=== PATIENT | female | born 1970 | race Hispanic/Latino ===

== ENCOUNTER 2022-02-27 14:58 | Outpatient (CLI) | payer OTHER ==
[2022-02-27] MEDS ORDERED: Iopamidol 300 61% 100 ML VIAL FS ONE (15:05)
== END 2022-02-27 14:59 | disposition home or self-care (01) ==
LOC: CSHCT 14:58
PROVIDERS: ATTEND Student in an Organized Health Care Education/Training Program
DX: R10.11 Right upper quadrant pain (principal); C91.10 Chronic lymphocytic leukemia of B-cell type not having achieved remission; R11.0 Nausea; R74.8 Abnormal levels of other serum enzymes; K76.0 Fatty (change of) liver, not elsewhere classified
CPT/HCPCS: 71260; 74177; Q9967

== ENCOUNTER 2022-05-26 08:15 | Day surgery (SDC) | payer OTHER, MEDICAID ==
[2022-05-22 11:21] VITALS: BMI 36.6
[2022-05-26] MEDS ORDERED: PROPOFOL 20 ML ONE (10:13)
[2022-05-26] MEDS ORDERED: Fentanyl 100 MCG/2 ML VIAL ONE (10:13)
[2022-05-26] MEDS ORDERED: Lidocaine 1% PF 5 ML VIAL ONE (10:13)
== END 2022-05-26 11:12 | disposition home or self-care (01) ==
LOC: CSHSDC 08:15
PROVIDERS: ATTEND Internal Medicine Gastroenterology
PROC: 0DB98ZX Excision of Duodenum, Via Natural or Artificial Opening Endoscopic, Diagnostic (ICD-10-PCS; principal; 2022-05-26)
DX: K21.9 Gastro-esophageal reflux disease without esophagitis (principal); K63.5 Polyp of colon; G47.30 Sleep apnea, unspecified; F32.A Depression, unspecified; K76.0 Fatty (change of) liver, not elsewhere classified; E11.9 Type 2 diabetes mellitus without complications; C91.10 Chronic lymphocytic leukemia of B-cell type not having achieved remission; J30.9 Allergic rhinitis, unspecified; G25.2 Other specified forms of tremor; I25.10 Atherosclerotic heart disease of native coronary artery without angina pectoris; E78.5 Hyperlipidemia, unspecified; R11.0 Nausea; Z88.6 Allergy status to analgesic agent; Z88.0 Allergy status to penicillin; Z88.2 Allergy status to sulfonamides; Z87.891 Personal history of nicotine dependence
CPT/HCPCS: 36416; 88305; J2704; J3010

== ENCOUNTER 2024-05-18 23:19 | Emergency (ER) | payer OTHER ==
[2024-05-18 23:52] LABS: Hematocrit 42.3 % (34.9-44.5); Hemoglobin 14.2 g/dL (12.0-15.5); MDiff Complete? YES; Mean Corpuscular HGB CONC 33.6 g/dL (32.0-36.0); Mean Corpuscular Hemoglobin 29.6 pg (27.0-33.0); Mean Corpuscular Volume 88.3 fL (81.6-98.3); Mean Platelet Volume 9.9 fL (7.4-10.4); Platelet Count 382 10x3/uL (150-450); RBC Distribution Width 13.8 % (11.5-14.5); Red Blood Cell (RBC) Count 4.79 10x6/uL (3.90-5.03); White Blood Cell (WBC) Count 19.9 10x3/uL (3.5-10.5)
[2024-05-19 00:11] LABS: ALT (SGPT) 17 U/L (8-55); AST (SGOT) 16 U/L (5-34); Alkaline Phosphatase 97 U/L (40-110); Anion Gap 15 mmol/L (10-20); BUN (Urea Nitrogen) 9 mg/dL (9.8-20.1); Bilirubin, Total 0.2 mg/dL (0.2-1.2); Calc. Creatinine Clearance 0 mL/min (70-130); Calcium 8.8 mg/dL (7.8-10.44); Carbon Dioxide 24 mmol/L (22-29); Chloride 108 mmol/L (98-107); Estimated GFR 79; Globulin 2.6 g/dL (2.4-3.5); Glucose 92 mg/dL (70-105); Potassium 3.9 mmol/L (3.5-5.1); Protein, Total 6.6 g/dL (6.0-8.3); Sodium 143 mmol/L (136-145)
[2024-05-19 00:14] LABS: Troponin I Less than 0.010 ng/mL (< 0.028)
[2024-05-19] MEDS ORDERED: Metoclopramide HCl 10 MG (2 mL) VIAL ONE (00:31)
[2024-05-19] MEDS ORDERED: diphenhydrAMINE 50 MG/ML VIAL ONE (00:31)
[2024-05-19] MEDS ORDERED: Acetaminophen 500 MG TAB ONE (00:31)
[2024-05-19 00:57] LABS: Band 5 % (5-11); Eosinophils 1 % (0-10); Lymphocytes 50 % (21-51); Monocytes 2 % (0-10); Neutrophil 35 % (42-75); Platelet Adequacy Comment Appears Adequate; Reactive Lymphocytes 6 % (0-10)
[2024-05-19 00:59] LABS: RBC Morph Comment Within Normal Limits
[2024-05-19 02:34] LABS: Troponin I Less than 0.010 ng/mL (< 0.028)
== END 2024-05-19 02:59 | disposition home or self-care (01) ==
LOC: CSHERS 23:19
DX: H66.92 Otitis media, unspecified, left ear (principal); D72.829 Elevated white blood cell count, unspecified; R51.9 Headache, unspecified; E11.9 Type 2 diabetes mellitus without complications; I11.0 Hypertensive heart disease with heart failure; I50.9 Heart failure, unspecified; Z79.899 Other long term (current) drug therapy; Z55.6 Problems related to health literacy
CPT/HCPCS: 70450; 71045; 80053; 83880; 84484; 85025; 87428; 93005; 96374; 96375; 99284; J1200; J2765; 36415

== ENCOUNTER 2025-02-10 11:14 | Emergency (ER) | payer OTHER, MEDICAID ==
[2025-02-10] MEDS ORDERED: Ondansetron PF 4 MG/2 ML Vial ONE ×2 (11:54→14:13)
[2025-02-10] MEDS ORDERED: Ketorolac Tromethamine 30 MG (1 mL) VIAL ONE (11:54)
[2025-02-10 12:03] LABS: Glucose, Urine (Dipstick) Normal (Negative); Leukocyte Negative (Negative); Protein, Urine (Dipstick) 15 mg/dl (Neg-Trace); Specific Gravity, Urine 1.015 (1.005-1.030)
[2025-02-10 12:45] LABS: ALT (SGPT) 20 U/L (Less than 34); AST (SGOT) 22 U/L (11-34); Albumin 4.3 g/dL (3.1-4.5); Alkaline Phosphatase 90 U/L (40-110); Anion Gap 16 mmol/L (10-20); BUN (Urea Nitrogen) 13 mg/dL (9.8-20.1); Bilirubin, Total 0.5 mg/dL (0.3-1.2); Calc. Creatinine Clearance 0 mL/min (70-130); Calcium 9.1 mg/dL (7.8-10.44); Carbon Dioxide 22 mmol/L (22-29); Chloride 105 mmol/L (98-107); Globulin 3.1 g/dL (2.4-3.5); Glucose 87 mg/dL (70-105); Lipase 13 U/L (8-78); Potassium 4.4 mmol/L (3.5-5.1); Sodium 139 mmol/L (136-145)
[2025-02-10 12:52] LABS: Troponin I Less than 0.010 ng/mL (< 0.028)
[2025-02-10 12:58] LABS: Hematocrit 43.1 % (34.9-44.5); Hemoglobin 14.1 g/dL (12.0-15.5); Mean Corpuscular Hemoglobin 28.4 pg (27.0-33.0); Mean Corpuscular Volume 86.9 fL (81.6-98.3); Platelet Count 382 10x3/uL (150-450); Red Blood Cell (RBC) Count 4.96 10x6/uL (3.90-5.03); White Blood Cell (WBC) Count 18.32 10x3/uL (3.5-10.5)
[2025-02-10 13:06] LABS: Bacteria/HPF 1+ HPF (None Seen); CAUTI Indications for Culture Pelvic or flank pain; Mucous/LPF Rare LPF (<2+); RBC/HPF 0-3 HPF (0-3); WBC/HPF 0-3 HPF (0-3)
[2025-02-10 13:08] LABS: Urine Culture Reflex No No
[2025-02-10 14:58] LABS: RBC Morphology Within Normal Limits
[2025-02-10 14:59] LABS: MDiff Complete? YES; Platelet Adequacy Comment Appears Adequate
== END 2025-02-10 15:05 | disposition home or self-care (01) ==
LOC: CSHERS 11:14
DX: R30.0 Dysuria (principal); R50.9 Fever, unspecified; I11.0 Hypertensive heart disease with heart failure; I50.9 Heart failure, unspecified; E11.9 Type 2 diabetes mellitus without complications
CPT/HCPCS: 74176; 80053; 81001; 83605; 83690; 84484; 85025; 93005; 96374; 96375; 96376; 99285; J1885; J2270; J2405

== ENCOUNTER 2025-06-07 13:43 | Emergency (ER) | payer OTHER, MEDICAID ==
[2025-06-07 14:51] LABS: Glucose, Urine (Dipstick) Normal (Negative); Leukocyte 25 (Negative); Protein, Urine (Dipstick) 30 mg/dl (Neg-Trace); Specific Gravity, Urine 1.020 (1.005-1.030)
[2025-06-07 14:59] LABS: Cocaine Metabolite Screen Negative (Negative); THC/Cannabinoid Screen PRELIM POSITIVE (Negative); Tricyclic Screen Negative (Negative)
[2025-06-07 15:05] LABS: Hematocrit 41.3 % (34.9-44.5); Hemoglobin 13.8 g/dL (12.0-15.5); Mean Corpuscular Hemoglobin 29.6 pg (27.0-33.0); Mean Corpuscular Volume 88.6 fL (81.6-98.3); Platelet Count 410 10x3/uL (150-450); Red Blood Cell (RBC) Count 4.66 10x6/uL (3.90-5.03); White Blood Cell (WBC) Count 19.66 10x3/uL (3.5-10.5)
[2025-06-07 15:14] LABS: ALT (SGPT) 18 U/L (Less than 34); AST (SGOT) 26 U/L (11-34); Albumin 4.3 g/dL (3.1-4.5); Alkaline Phosphatase 96 U/L (40-110); Anion Gap 14 mmol/L (10-20); BUN (Urea Nitrogen) 9 mg/dL (9.8-20.1); Bilirubin, Total 0.3 mg/dL (0.3-1.2); Calc. Creatinine Clearance 0 mL/min (70-130); Calcium 9.4 mg/dL (7.8-10.44); Carbon Dioxide 24 mmol/L (22-29); Chloride 106 mmol/L (98-107); Globulin 3.1 g/dL (2.4-3.5); Glucose 105 mg/dL (70-105); Lipase 9 U/L (8-78); Magnesium 1.9 mg/dL (1.6-2.6); Potassium 4.1 mmol/L (3.5-5.1); Sodium 140 mmol/L (136-145)
[2025-06-07 15:27] LABS: Troponin I Less than 0.010 ng/mL (< 0.028)
[2025-06-07 15:36] LABS: CAUTI Indications for Culture Alt mental st,lethar
[2025-06-07 15:39] LABS: Bacteria/HPF 2+ HPF (None Seen)
[2025-06-07 15:42] LABS: Mucous/LPF 3+ LPF (<2+)
[2025-06-07 15:43] LABS: Urine Culture Reflex No No
[2025-06-07 16:43] LABS: Acetaminophen Less than 10 mcg/mL (Less than 10); Salicylate Less than 8.0 mg/dL (Less than 8.0)
[2025-06-07 17:14] LABS: MDiff Complete? YES; Platelet Adequacy Comment Appears Adequate; RBC Morphology Within Normal Limits
[2025-06-07] MEDS ORDERED: Acetaminophen 325 MG TAB ONE (17:50)
[2025-06-07] MEDS ORDERED: Lisinopril 10 MG TAB PO SCH (19:30)
[2025-06-07 21:36] LABS: Acetaminophen Less than 10 mcg/mL (Less than 10); Salicylate Less than 8.0 mg/dL (Less than 8.0)
[2025-06-07 22:00] LABS: Cocaine Metabolite Screen Negative (Negative); THC/Cannabinoid Screen PRELIM POSITIVE (Negative); Tricyclic Screen Negative (Negative)
== END 2025-06-08 10:57 ==
LOC: CSHERS 13:43
DX: F25.9 Schizoaffective disorder, unspecified (principal); F12.10 Cannabis abuse, uncomplicated; I11.0 Hypertensive heart disease with heart failure; I50.9 Heart failure, unspecified; E11.9 Type 2 diabetes mellitus without complications; I25.10 Atherosclerotic heart disease of native coronary artery without angina pectoris; F17.210 Nicotine dependence, cigarettes, uncomplicated
CPT/HCPCS: 70450; 71045; 80306; 80307 ×2; 81001; 83605; 83690; 83735; 83880; 84484; 93005; 96372; 99285; J3486; 36415; 80053; 84443; 85025